=== PATIENT | female | born 1950 | race Caucasian/White ===

== ENCOUNTER 2022-06-08 18:36 | Emergency (ER) | payer MEDICARE, SELFPAY ==
[2022-06-08] VITALS (23 sets, daily range): BP systolic 133–188; BP diastolic 59–89; PULSE 57–78; RESP 15–23; TEMP 37.3; O2SAT 94–99; BMI 26.9
--- NOTE | 2022-06-08 18:42 | DI.RAD.S_ITS ---
PROCEDURE: XR CHEST 1V INDICATIONS: Chest pain TECHNIQUE: One view of the chest was acquired. COMPARISON: None. FINDINGS: Surgical changes and devices: None. Lungs and pleura: Lungs are clear. No pleural effusions or pneumothorax. Mediastinum: Mediastinal contours appear normal. Heart size is normal. Bones and chest wall: No suspicious bony lesions. Overlying soft tissues appear unremarkable. IMPRESSION: No acute cardiopulmonary process demonstrated radiographically. Dictated by: Tyler Bennett M.D. on 06/08/2022 at 19:25 Approved by: Tylre Bennett M.D. on 06/08/2022 at 19:26
[2022-06-08 19:08] LABS: Add Manual Diff / Slide Review NO; Basophils Absolute Auto 0 /uL (0-100); Basophils Percent Auto 0.5 % (0-2); Eosinophils Absolute Auto 100 /uL (0-450); Hematocrit 38.4 % (36-46); Hemoglobin 12.6 g/dL (12.0-16.0); Lymphocytes Absolute Auto 2600 /uL (1100-4500); Lymphocytes Percent Auto 42.7 % (25-40); Mean Corpuscular HGB Conc 32.9 % (30-36); Mean Corpuscular Hemoglobin 29.1 PG (26-34); Mean Corpuscular Volume 88.4 fL (80-100); Monocytes Absolute Auto 400 /uL (0-900); Monocytes Percent Auto 7.1 % (3-14); Neutrophils Absolute Auto 2900 /uL (1500-7000); Neutrophils Percent Auto 47.7 % (50-75); Platelet Count 259 X10^3/uL (150-400); Red Blood Cell Count 4.35 X10^6/uL (4.0-5.2); Red Cell Distribution Width 13.5 % (11.6-14.8)
[2022-06-08 19:16] LABS: PTT Partial Thromboplastin Tim 30 SECONDS (26-36)
[2022-06-08 19:18] LABS: Alanine Aminotransferase 19 IU/L (<35); Albumin 4.3 g/dL (3.5-5.0); Albumin Globulin Ratio 1.3 (1.0-2.8); Alkaline Phosphatase 72 U/L (38-126); Aspartate Aminotransferase 24 IU/L (14-36); BUN Creatinine Ratio 29.5 (6-22); Bilirubin Total 0.2 mg/dL (0.2-1.3); Blood Urea Nitrogen 18 mg/dL (7-17); Calcium 9.2 mg/dL (8.4-10.2); Carbon Dioxide 31 mmol/L (22-32); Chloride 103 mmol/L (98-107); Creatine Kinase 54 U/L (30-135); Estimated Glomerular Filt Rate > 60 mL/min (>60); Globulin 3.4 g/dL (1.7-4.1); Glucose 106 mg/dL (80-110); HEMOLYSIS < 15 (0-50); Lipase 112 U/L (23-300); Magnesium 2.2 mg/dL (1.6-2.3); Potassium 3.7 mmol/L (3.4-5.1); Sodium 139 mmol/L (137-145); Total Protein 7.7 g/dL (6.3-8.2)
[2022-06-08 19:30] LABS: Troponin I < 0.012 ng/mL (0.01-0.034)
[2022-06-08] MEDS: ASPIRIN 81 MG CHEW TAB 324 MG PO (19:38)
--- NOTE | 2022-06-08 20:29 | ED.CHESTPAIN ---
HPI - Chest Pain General Chief Complaint: Chest Pain Stated Complaint: Headache, Heart paliplations, stutter, L side defi Time Seen by Provider: 06/08/22 19:24 Source: patient Mode of arrival: Family Vehicle Limitations: no limitations History of Present Illness HPI narrative: Patient is a 71-year-old history of coronary artery spasm is followed by Dr. Klein, hyperlipidemia presenting today with left arm pain and chest pain. She also reports headache and stuttering of words. She was driving in the car when she suddenly thought she was having a spasm but had headache. He had some chest pain went to her jaw and neck. He is having some left arm pain as well. She denies any history of stents or heart attacks. She reports that she was admitted to [facility] March 28 for TIA. She had follow-up with Dr. Klein on June 03 for ongoing palpitations. He wanted to get an echocardiogram but unable to do so until July and get a Holter monitor. She has an appointment with neurology at [facility] tomorrow Related Data Home Medications Medication Instructions Recorded Confirmed alendronate-vitamin D3 06/08/22 aspirin 81 mg chewable tablet 81 mg PO DAILY 06/08/22 06/08/22 atorvastatin 10 mg tablet 10 mg PO DAILY 06/08/22 06/08/22 Allergies Allergy/AdvReac Type Severity Reaction Status Date / Time meperidine [From Demerol] Allergy Difficulty Verified 06/08/22 18:50 Breathing isosorbide [From Imdur] AdvReac Weakness Verified 06/08/22 18:50 Review of Systems Review of Systems ROS Unobtainable: All systems reviewed & are unremarkable except as noted in HPI and below Patient History Social History Smoking Status: Never smoker Smoking Status: Never smoker alcohol intake frequency: 0-2 drinks per day Substance Use Type: does not use Exam Initial Vital Signs Initial Vital Signs: Vital Signs Temperature 99.2 F 06/08/22 18:42 Pulse Rate 78 06/08/22 18:42 Respiratory Rate 22 06/08/22 18:42 Blood Pressure 188/89 H 06/08/22 18:42 Pulse Oximetry 99 06/08/22 18:42 Oxygen Delivery Method Room Air 06/08/22 18:42 GENERAL: Alert pleasant 71-year-old female and in no acute distress. HEENT: Head atraumatic,EOMI, pupils reactive, face symmetric, moist mucous membranes CARDIOVASCULAR: Regular rate and rhythm without murmurs, rubs or gallops. RESPIRATORY: Breath sounds equal bilaterally, no wheezes rales or rhonchi. ABDOMEN: Soft, nontender. Normoactive bowel sounds all 4 quadrants. No guarding or rebound. EXTREMITIES: Normal range of motion, no clubbing or edema. Neurovascularly intact NEUROLOGICAL: Alert and oriented x4.Normal gait and speech. Cranial nerves II through XII grossly intact. Good victrr-up-cbrd, good [id number]-[id number], strength equal bilaterally, no dysarthria or aphasia, sensation in tact to soft touch bilaterally, no visual changes, no facial droop SKIN: Warm, dry, no laceration, no petechiae, no rashes or lesions. Scores NIH Stroke Scale Level of Conciousness: Alert, keenly responsive Ask month/age: Answers both questions correctly. Open/close eyes, close hand: Performs both tasks correctly Best gaze horizontal: Normal Visual howard: No visual loss Facial palsy: Normal symetrical movement Left arm drift: No drift for full 10 sec Right arm drift: No drift for full 10 sec Left leg drift: No drift for full 5 sec Right leg drift: No drift for full 5 sec Limb ataxia: Absent Sensory on face/arms/legs: Normal, no sensory loss Best language: No aphasia, normal Dysarthria: Normal Extinction or inattention: No abnormality Total NIH Stroke scale score: 0 Course Orders Ordered: ED Orders 06/08/22 22:58 CT angio head and neck Stat Discontinued Medications Acetaminophen (Acetaminophen 325 Mg Tablet) 650 mg PO NOW ONE Stop: 06/08/22 21:56 Last Admin: 06/08/22 22:01 Dose: 650 mg Documented By: BS Aspirin (Aspirin 81 Mg Chew Tab) 324 mg PO NOW ONE Stop: 06/08/22 18:43 Last Admin: 06/08/22 19:38 Dose: 243 mg Documented By: BS Nitroglycerin (Nitroglycerin 0.4 Mg Sl Tab) 0.4 mg SL NOW ONE Stop: 06/08/22 21:30 Last Admin: 06/08/22 21:33 Dose: 0.4 mg Documented By: BS Ondansetron HCl (Ondansetron 4 Mg/2 Ml Inj) 4 mg IV NOW ONE Stop: 06/08/22 23:10 Last Admin: 06/08/22 23:12 Dose: 4 mg Documented By: NICOLLE Vital Signs Vital signs: Vital Signs - 8 hr 06/09/22 00:58 06/09/22 00:00 06/09/22 00:15 Temperature 97.2 F L Pulse Rate 70 52 L 59 L Respiratory Rate 16 18 15 Blood Pressure 133/58 L Pulse Oximetry 97 96 96 Oxygen Delivery Method Room Air 06/09/22 00:30 06/09/22 00:45 Temperature Pulse Rate 61 72 Respiratory Rate 14 31 H Blood Pressure 133/58 L Pulse Oximetry 96 97 Oxygen Delivery Method MDM - Chest Pain Lab Data 06/08/22 18:58 06/08/22 18:58 Labs: Lab Results 06/08/22 06/08/22 06/08/22 Range/Units 18:58 18:58 18:58 WBC 6.0 (4.5-11.0) X10^3/uL RBC 4.35 (4.0-5.2) X10^6/uL Hgb 12.6 (12.0-16.0) g/dL Hct 38.4 (36-46) % MCV 88.4 (80-100) fL MCH 29.1 (26-34) PG MCHC 32.9 (30-36) % RDW 13.5 (11.6-14.8) % Plt Count 259 (150-400) X10^3/uL Neut % (Auto) 47.7 L (50-75) % Lymph % (Auto) 42.7 H (25-40) % [place] % (Auto) 7.1 (3-14) % Eos % (Auto) 2.0 (2-4) % Baso % (Auto) 0.5 (0-2) % Neut # (Auto) 2900 (8451-0908) /uL Lymph # (Auto) 2600 (7353-9785) /uL [place] # (Auto) 400 (0-900) /uL Eos # (Auto) 100 (0-450) /uL Baso # (Auto) 0 (0-100) /uL PT 11.0 (10.1-12.7) SECONDS INR 1.0 (0.9-1.3) APTT 30 (26-36) SECONDS Sodium 139 (137-145) mmol/L Potassium 3.7 (3.4-5.1) mmol/L Chloride 103 (98-107) mmol/L Carbon Dioxide 31 (22-32) mmol/L BUN 18 H (7-17) mg/dL Creatinine 0.61 (0.52-1.04) mg/dL Estimated GFR > 60 (>60) mL/min BUN/Creatinine Ratio 29.5 H (6-22) Glucose 106 (80-110) mg/dL Calcium 9.2 (8.4-10.2) mg/dL Magnesium 2.2 (1.6-2.3) mg/dL Total Bilirubin 0.2 (0.2-1.3) mg/dL AST 24 (14-36) IU/L ALT 19 (<35) IU/L Alkaline Phosphatase 72 (38-126) U/L Total Creatine Kinase 54 (30-135) U/L CK-MB (CK-2) TNP CK-MB (CK-2) Rel Index TNP Troponin I < 0.012 (0.01-0.034) ng/mL Total Protein 7.7 (6.3-8.2) g/dL Albumin 4.3 (3.5-5.0) g/dL Globulin 3.4 (1.7-4.1) g/dL Albumin/Globulin Ratio 1.3 (1.0-2.8) Lipase 112 (23-300) U/L SARS-CoV-2 (PCR) (Negative) 06/08/22 06/08/22 Range/Units 20:13 21:01 WBC (4.5-11.0) X10^3/uL RBC (4.0-5.2) X10^6/uL Hgb (12.0-16.0) g/dL Hct (36-46) % MCV (80-100) fL MCH (26-34) PG MCHC (30-36) % RDW (11.6-14.8) % Plt Count (150-400) X10^3/uL Neut % (Auto) (50-75) % Lymph % (Auto) (25-40) % [place] % (Auto) (3-14) % Eos % (Auto) (2-4) % Baso % (Auto) (0-2) % Neut # (Auto) (6478-6966) /uL Lymph # (Auto) (2724-4506) /uL [place] # (Auto) (0-900) /uL Eos # (Auto) (0-450) /uL Baso # (Auto) (0-100) /uL PT (10.1-12.7) SECONDS INR (0.9-1.3) APTT (26-36) SECONDS Sodium (137-145) mmol/L Potassium (3.4-5.1) mmol/L Chloride (98-107) mmol/L Carbon Dioxide (22-32) mmol/L BUN (7-17) mg/dL Creatinine (0.52-1.04) mg/dL Estimated GFR (>60) mL/min BUN/Creatinine Ratio (6-22) Glucose (80-110) mg/dL Calcium (8.4-10.2) mg/dL Magnesium (1.6-2.3) mg/dL Total Bilirubin (0.2-1.3) mg/dL AST (14-36) IU/L ALT (<35) IU/L Alkaline Phosphatase (38-126) U/L Total Creatine Kinase (30-135) U/L CK-MB (CK-2) CK-MB (CK-2) Rel Index Troponin I < 0.012 (0.01-0.034) ng/mL Total Protein (6.3-8.2) g/dL Albumin (3.5-5.0) g/dL Globulin (1.7-4.1) g/dL Albumin/Globulin Ratio (1.0-2.8) Lipase (23-300) U/L SARS-CoV-2 (PCR) Negative (Negative) Imaging Data CTA - brain/neck: Radiologist's Impression: PROCEDURE:? CT ANGIO HEAD AND NECK ? INDICATIONS:? prior tia today headache slurring speech ? TECHNIQUE:? Pre-contrast 4.5 mm thick sections acquired from the foramen magnum to the vertex.? After the administration of intravenous contrast, 1 mm thick sections acquired from the aortic arch through the [place] of [place].? Post-contrast 4.5 mm thick sections then re-acquired from the foramen magnum to the vertex.? 3-dimensional iqjezws-zkjkvknpd-gplwhuqedi (MIP) and/or volume rendering reformats were acquired of the central intracranial vasculature and neck separately. For radiation dose reduction, the following was used:? automated exposure control, adjustment of mA and/or kV according to patient size.? ? COMPARISON:? None. ? FINDINGS:? Image quality:? There is mild motion artifact.? ? BRAIN:? CSF spaces:? Basal cisterns are patent.? No extra-axial fluid collections.? Ventricles are normal in size and shape.? ? Brain:? No intracranial hemorrhage, mass, or mass effect.? Ryan-white matter interface appears preserved.? No abnormal intracranial enhancement.? ? Skull and face:? Calvarium and facial bones appear intact, without suspicious lesions.? Orbits appear normal.? ? Sinuses:? Sinuses and mastoids are clear.? ? HEAD CT ANGIOGRAPHY:? Anterior circulation:? Intracranial internal carotid arteries are normal in size and appear patent bilaterally.? There is mild atherosclerotic calcification along the cavernous segments of the internal carotid arteries.? The paired anterior cerebral arteries appear patent bilaterally.? The anterior communicating artery also appears patent. The middle cerebral arteries appear patent bilaterally.? No high-grade stenosis, occlusion, or filling defects.? No cerebral aneurysms identified. ? Posterior circulation:? Visualized portions of the vertebral arteries demonstrate normal caliber, and join to form a patent basilar artery.? The posterior cerebral arteries appears patent bilaterally.? No high-grade stenosis, occlusion, or filling defects.? No cerebral aneurysms identified. ? NECK CT ANGIOGRAPHY:? Carotid system:? The great vessels demonstrate a conventional anatomy as they arise from the aortic arch.? The origins of the common carotid arteries appear patent.? The common carotid arteries demonstrate normal caliber and courses.? The bifurcation regions are both widely patent.? The internal carotid arteries demonstrate normal calibers and courses.? ? Posterior circulation:? The origins of the vertebral arteries both appear patent.? The more superior extracranial portions of both vertebral arteries also demonstrate normal courses and calibers.? They join to form a patent basilar artery.? ? Soft tissues:? Visualized neck soft tissues demonstrate no suspicious abnormalities.? ? Bones:? No suspicious bony lesions.? Visualized cervical spine demonstrates moderate degenerative disc disease at C4-C5.? There is moderate multilevel facet arthropathy. ? ? IMPRESSION:? ? 1. No acute intracranial abnormality. ? 2. No high-grade stenosis or occlusion of the central intracranial arteries. ? 3. No high-grade stenosis or occlusion of the head and neck arteries.? ? Any quantitative measurements of stenosis were performed using NASCET criteria.? ? ? Dictated by: Armaan Nieves M.D. on 06/08/2022 at 23:46 ?? ECG Data Interpretation: EKG 1. Sinus rhythm rate 80 DC interval 182 QRS [address] changes T-wave inversion noted in V2 Q-waves probable incomplete right bundle no priors to compare EKG 2. Sinus rhythm persistent T-wave inversion in V2 no ST changes EKG 3. Sinus rhythm no changes from previous MDM Narrative Medical decision making narrative: Patient is a 71-year-old female history of hyperlipidemia TIAs presenting today with headache stuttering of speech and left arm problems. I received records from [facility] and reviewed them she has had multiple episodes of this exact same presentation. Once in 2017 and once in 2020 she actually received tPA twice. In March during her [facility] stay she had an MRI and echo she followed up with Cardiology yesterday. Cardiology no has a low index of suspicion that it is cardiac related would like to get a 14 day Holter monitor. She is an appointment with Neurology tomorrow for evaluation of possible atypical migraines versus seizure versus other. She is 2- troponins today without any EKG changes no leukocytosis anemia electrolyte abnormality or RICARDO. Chest x-ray is negative CT angio today is negative. She is NIH stroke scale of 0. She was given 1 dose of nitro here in the ED along with aspirin. Pain slightly improved. At this time patient has an odd presentation of both neurological and cardiac related she is aware ready been evaluated by cardio recommend that she see Neurology tomorrow. Discharge Plan Departure Patient Disposition: Home Clinical Impression: Atypical chest pain, Headache Instructions: DI for Atypical Chest Pain Activity Restrictions/Additional Instructions: *You have been diagnosed with atypical chest pain, headache *What to do: At this time the best thing his for you to have evaluation by Neurology tomorrow. Today seems like very similar presentation to what you have had previously. I hope that Neurology has some answers for you *Continue to take medications as directed *Follow up with your primary care provider in 2-3 days or call [phone] *Return to ER if you should have chest pain headache weakness numbness tingling or any new, worsening or concerning symptoms Prescriptions: No Action atorvastatin 10 mg tablet 10 mg PO DAILY Patient Comments: TAKE ONE TABLET BY MOUTH EVERY DAY aspirin 81 mg Tablet,Chewable 81 mg PO DAILY alendronate-vitamin D3 Referrals: Weston Ruiz DO [Primary Care Provider] - Stand Alone Forms: Patient Portal/API
[2022-06-08 20:34] LABS: COVID19 -Nasal RAPID Negative (Negative)
[2022-06-08 21:30] LABS: Troponin I < 0.012 ng/mL (0.01-0.034)
[2022-06-08] MEDS: NITROGLYCERIN 0.4 MG SL TAB SL (21:33)
[2022-06-08] MEDS: ACETAMINOPHEN 325 MG TABLET 650 MG PO (22:01)
--- NOTE | 2022-06-08 22:58 | DI.CT.S_ITS ---
PROCEDURE: CT ANGIO HEAD AND NECK INDICATIONS: prior tia today headache slurring speech TECHNIQUE: Pre-contrast 4.5 mm thick sections acquired from the foramen magnum to the vertex. After the administration of intravenous contrast, 1 mm thick sections acquired from the aortic arch through the [place] of [place]. Post-contrast 4.5 mm thick sections then re-acquired from the foramen magnum to the vertex. 3-dimensional hacsuna-pqcrntjoo-fixsxxlfyq (MIP) and/or volume rendering reformats were acquired of the central intracranial vasculature and neck separately. For radiation dose reduction, the following was used: automated exposure control, adjustment of mA and/or kV according to patient size. COMPARISON: None. FINDINGS: Image quality: There is mild motion artifact. BRAIN: CSF spaces: Basal cisterns are patent. No extra-axial fluid collections. Ventricles are normal in size and shape. Brain: No intracranial hemorrhage, mass, or mass effect. Ryan-white matter interface appears preserved. No abnormal intracranial enhancement. Skull and face: Calvarium and facial bones appear intact, without suspicious lesions. Orbits appear normal. Sinuses: Sinuses and mastoids are clear. HEAD CT ANGIOGRAPHY: Anterior circulation: Intracranial internal carotid arteries are normal in size and appear patent bilaterally. There is mild atherosclerotic calcification along the cavernous segments of the internal carotid arteries. The paired anterior cerebral arteries appear patent bilaterally. The anterior communicating artery also appears patent. The middle cerebral arteries appear patent bilaterally. No high-grade stenosis, occlusion, or filling defects. No cerebral aneurysms identified. Posterior circulation: Visualized portions of the vertebral arteries demonstrate normal caliber, and join to form a patent basilar artery. The posterior cerebral arteries appears patent bilaterally. No high-grade stenosis, occlusion, or filling defects. No cerebral aneurysms identified. NECK CT ANGIOGRAPHY: Carotid system: The great vessels demonstrate a conventional anatomy as they arise from the aortic arch. The origins of the common carotid arteries appear patent. The common carotid arteries demonstrate normal caliber and courses. The bifurcation regions are both widely patent. The internal carotid arteries demonstrate normal calibers and courses. Posterior circulation: The origins of the vertebral arteries both appear patent. The more superior extracranial portions of both vertebral arteries also demonstrate normal courses and calibers. They join to form a patent basilar artery. Soft tissues: Visualized neck soft tissues demonstrate no suspicious abnormalities. Bones: No suspicious bony lesions. Visualized cervical spine demonstrates moderate degenerative disc disease at C4-C5. There is moderate multilevel facet arthropathy. IMPRESSION: 1. No acute intracranial abnormality. 2. No high-grade stenosis or occlusion of the central intracranial arteries. 3. No high-grade stenosis or occlusion of the head and neck arteries. Any quantitative measurements of stenosis were performed using NASCET criteria. Dictated by: Armaan Nieves M.D. on 06/08/2022 at 23:46 Approved by: Armaan Nieves M.D. on 06/08/2022 at 23:50
[2022-06-08] MEDS: ONDANSETRON 4 MG/2 ML INJ IV (23:12)
[2022-06-09] VITALS: PULSE 52; RESP 18; O2SAT 96
[2022-06-09 00:15] VITALS: PULSE 59; RESP 15; O2SAT 96
[2022-06-09 00:30] VITALS: PULSE 61; RESP 14; O2SAT 96
[2022-06-09 00:45] VITALS: BP 133/58; PULSE 72; RESP 31; O2SAT 97
[2022-06-09 00:58] VITALS: BP 133/58; PULSE 70; RESP 16; TEMP 36.2; O2SAT 97
== END 2022-06-09 01:00 | disposition home or self-care (01) ==
PROVIDERS: Emergency Provider Emergency Medicine; PCP Family Medicine
DX: R07.89 Other chest pain (principal); R51.9 Headache, unspecified; Z20.822 Contact with and (suspected) exposure to COVID-19
CPT/HCPCS: 36415; 70496; 70498; 71045; 80053; 82550; 83690; 83735; 84484; 85025; 85610; 85730; 87635; 93005; 93010; 96374; 99284; C9803; J2405; Q9967